=== PATIENT | female | born 1940 | race Caucasian/White ===

== ENCOUNTER 2017-07-22 10:30 | Emergency (ER) | payer MEDICARE, OTHER ==
--- NOTE | 2017-07-22 10:54 | EDM.PDOC ---
ED HPI GENERAL MEDICAL PROBLEM - General Chief Complaint: Chest Pain Stated Complaint: ER Time Seen by Provider: 07/22/17 10:35 Source of Information: Reports: Patient, EMS, EMS Notes Reviewed History Limitations: Reports: No Limitations - History of Present Illness INITIAL COMMENTS - FREE TEXT/NARRATIVE: Pt Comes into the emergency department via EMS today after sustaining sudden chest discomfort on the left side with shortness of breath that lasted approximately 45 minutes before calling EMS. Patient has had 2 other similar episodes of loss week to week and a half. She states that she gets short of breath chest discomfort. She was going to go into the clinic and have this checked out. However this morning when this discomfort started she decided to call 911 and be escorted to the emergency department. The chest discomfort has dissipated however she remains SOB at rest. This is not a new occurrence for the pt. She has been SOB for the past 2 years after only completing light work of 30 mins. The chest discomfort has always followed the SOB after activity. Pt also has a low pulse and a history of a. fib. Onset: Sudden Location: Reports: Chest Quality: Reports: Ache, Pressure Severity: Moderate Associated Symptoms: Reports: Chest Pain, Shortness of Breath. Denies: Cough, cough w sputum, Diaphoresis, Headaches, Loss of Appetite, Malaise, Syncope - Related Data Allergies Allergy/AdvReac Type Severity Reaction Status Date / Time Yquhhnw-[id number]-[id number] Reductase Allergy Other Verified 07/22/17 12:40 Inhibitor chocolate Allergy Other Uncoded 07/22/17 12:40 Home Meds: Home Meds Flaxseed Oil [Flaxseed] 1,000 mg PO DAILY 11/03/13 [History] Furosemide [Lasix] 40 mg PO DAILY 11/03/13 [History] Metoprolol Tartrate 100 mg PO BID 11/03/13 [History] [place]-3/DHA/Epa/Fish Oil [Fish Oil 1,000 mg Softgel] 1 each PO BID 11/03/13 [ History] Warfarin [Coumadin] 5 mg PO ASDIRECTED 11/03/13 [History] Beta-Carotene(A) w/C & E/Min [Prosight] 1 cap PO DAILY 10/24/15 [History] Cholecalciferol (Vitamin D3) [Vitamin D3] 1 tab PO DAILY 10/24/15 [History] Cyanocobalamin (Vitamin B12) [Vitamin B12] 1 ml IM Q30D 10/24/15 [History] Docusate Sodium [Colace] 1 cap PO DAILY 10/24/15 [History] Glucosamine Sulfate 1 tab PO DAILY 10/24/15 [History] L.acidoph,Paracasei, B.lactis [Probiotic] 1 tab PO DAILY 10/24/15 [History] Nortriptyline HCl [Pamelor] 25 mg PO BEDTIME 10/24/15 [History] Omeprazole Magnesium [Prilosec Otc] 20 mg PO DAILY 10/24/15 [History] Pravastatin Sodium [Pravastatin (Pravachol)] 20 mg PO BEDTIME 10/24/15 [History] Vitamin E 400 units PO DAILY 10/24/15 [History] ALPRAZolam [Xanax] 0.25 mg PO TID PRN 03/19/16 [History] Calcium Carbonate/Vitamin D3 [Os-Néstor 500+D] 1 each PO BID 03/19/16 [History] Spironolactone [Aldactone] 12.5 mg PO DAILY 03/19/16 [History] Azithromycin [IJD: Azithromycin] 250 mg PO DAILY #6 tab 07/22/17 [Rx] Citalopram [Citalopram HBr] 20 mg PO DAILY 07/22/17 [History] Diltiazem HCl [Dilt-XR] 120 mg PO DAILY 07/22/17 [History] Linaclotide [Linzess] 145 mcg PO DAILY 07/22/17 [History] Oxybutynin Chloride [Oxybutynin Chloride ER] 15 mg PO DAILY 07/22/17 [History] Prednisone [IJD: Prednisone] 10 mg PO BID #8 tab 07/22/17 [Rx] Past Medical History HEENT History: Reports: Cataract Cardiovascular History: Reports: Afib, Heart Failure, High Cholesterol, Hypertension Other Cardiovascular History: MITRAL REGURGITATION Respiratory History: Reports: Sleep Apnea Gastrointestinal History: Reports: Colon Polyp, Other (See Below) Other Gastrointestinal History: FATTY LIVER, ABDOMINAL PAIN, Genitourinary History: Reports: Other (See Below) Other Genitourinary History: OVER ACTIVE BLADDER Musculoskeletal History: Reports: Other (See Below) Other Musculoskeletal History: TRIGGER FINGER, ROTATOR CUFF INJURY Neurological History: Reports: Other (See Below) Other Neuro History: COGNITIVE IMPAIRMENT Psychiatric History: Reports: Anxiety, Depression Endocrine/Metabolic History: Reports: Diabetes, Type II Hematologic History: Reports: B12 Deficiency Immunologic History: Reports: None Oncologic (Cancer) History: Reports: Bladder Dermatologic History: Reports: None - Past Surgical History GI Surgical History: Reports: Appendectomy, Cholecystectomy, Other (See Below) Female Surgical History: Reports: Breast Reduction, Hysterectomy, Tubal Ligation Neurological Surgical History: Reports: Lumbar Spine, Other (See Below) Musculoskeletal Surgical History: Reports: Other (See Below) Social & Family History - Family History Cardiac: Reports: Hypertension, [place] - Tobacco Use Smoking Status *Q: Never Smoker Second Hand Smoke Exposure: No - Alcohol Use Days Per Week of Alcohol Use: 0 - Recreational Drug Use Recreational Drug Use: No Drug Use in Last 12 Months: No ED ROS GENERAL - Review of Systems Review Of Systems: See Below Constitutional: Reports: No Symptoms HEENT: Reports: No Symptoms Respiratory: Reports: Cough, Sputum Cardiovascular: Reports: Chest Pain, Dyspnea on Exertion, Lightheadedness GI/Abdominal: Reports: No Symptoms : Reports: No Symptoms ED EXAM, GENERAL - Physical Exam Exam: See Below General Appearance: Alert, WD/WN, No Apparent Distress Respiratory/Chest: No Respiratory Distress, Lungs Clear, Normal Breath Sounds, No Accessory Muscle Use, Chest Non-Tender Cardiovascular: Normal Peripheral Pulses, Regular Rate, Rhythm, No Edema GI/Abdominal: Normal Bowel Sounds, Soft, Non-Tender Extremities: Normal Inspection, Normal Range of Motion Neurological: Alert, CN II-XII Intact Psychiatric: Normal Affect, Normal Mood Skin Exam: Warm, Dry, Intact, Normal Color EKG INTERPRETATION Rhythm: NSR Course - Orders/Labs/Meds Orders: Active Orders 24 hr Category Date Time Status EKG 12 Lead [EKG Documentation Completion] [RC] URGENT Care 07/22/17 10:37 Active Chest 1V Frontal [CR] Stat Exams 07/22/17 10:36 Taken Chest PE [Ang Chest] [CT] Stat Exams 07/22/17 12:07 Ordered UA W/MICROSCOPIC [URIN] Stat Lab 07/22/17 11:07 Ordered Labs: Laboratory Tests 07/22/17 07/22/17 07/22/17 Range/Units 10:36 11:08 11:08 WBC 6.1 (4.0-10.0) x10^3/uL RBC 4.05 (4.00-5.50) x10^6/uL Hgb 12.6 (12.0-16.0) g/dL Hct 37.7 (33.0-47.0) % MCV 93.1 H D (78.0-93.0) fL MCH 31.1 (26.0-32.0) pg MCHC 33.4 (32.0-36.0) g/dL RDW Coeff of Dawit 12.9 (10.0-15.0) % Plt Count 170 (130-400) x10^3/uL Neut % (Auto) 47.2 L (50.0-80.0) % Lymph % (Auto) 32.2 (25.0-50.0) % [place] % (Auto) 8.9 (2.0-11.0) % Eos % (Auto) 11.4 H (0.0-4.0) % Baso % (Auto) 0.3 (0.2-1.2) % D-Dimer, Quantitative 0.36 (<=0.58) mg/LFEU Sodium 141 (136-145) mmol/L Potassium 4.9 (3.5-5.1) mmol/L Chloride 105 (98-107) mmol/L Carbon Dioxide 29 (21-32) mmol/L BUN 12 (7-18) mg/dL Creatinine 0.8 (0.55-1.02) mg/dL Est Cr Clr Drug Dosing TNP Estimated GFR (MDRD) > 60 Glucose 124 H (74-106) mg/dL Calcium 8.6 (8.5-10.1) mg/dL Corrected Calcium 9.00 (8.5-10.1) mg/dL Total Bilirubin 1.2 H (0.2-1.0) mg/dL AST 35 (15-37) U/L ALT 44 (14-59) U/L Alkaline Phosphatase 117 H (46-116) U/L Troponin I < 0.017 (<=0.056) ng/mL Total Protein 6.9 (6.4-8.2) g/dL Albumin 3.5 (3.4-5.0) g/dL Globulin 3.4 Albumin/Globulin Ratio 1.03 Meds: Medications Discontinued Medications Generic Name Dose Route Start Last Admin Trade Name Freq PRN Reason Stop Dose Admin Iopamidol 100 ml 03/23/18 12:23 Isovue-300 (61%) IVPUSH 07/22/17 12:24 ONETIME ONE Departure - Departure Time of Disposition: 13:35 Disposition: Home, Self-Care 01 Condition: Good Clinical Impression: SOB (shortness of breath), Bronchitis Instructions: Acute Bronchitis, Adult Forms: ED Department Discharge - My Orders Last 24 Hours: My Active Orders 07/22/17 10:36 Chest 1V Frontal [CR] Stat 07/22/17 10:37 EKG 12 Lead [EKG Documentation Completion] [RC] URGENT 07/22/17 11:07 UA W/MICROSCOPIC [URIN] Stat 07/22/17 12:07 Chest PE [Ang Chest] [CT] Stat - Assessment/Plan Last 24 Hours: My Active Orders 07/22/17 10:36 Chest 1V Frontal [CR] Stat 07/22/17 10:37 EKG 12 Lead [EKG Documentation Completion] [RC] URGENT 07/22/17 11:07 UA W/MICROSCOPIC [URIN] Stat 07/22/17 12:07 Chest PE [Ang Chest] [CT] Stat Plan: 1. Labs completed in ER and results reviewed with the pt 2. Xray completed in ER and results reviewed with pt 3. Pt on Coumadin no other anticoagulant is warranted 4. CTA to rule out PE completed and results discussed with the pt. 5. Bronchial wall thickening revealed on CTA suggested of bronchitis. Pt will be given a short course of steroid to help reduce the inflammation. Azithromycin will also be given since the episodes have occurred over the course of 7-10 days now. 6. Did offer pt to come in observation to monitor and see if we can document a SOB episode. She would not like that option at this time and was aware of the risk of not being observed including but not limited to . Pt understands she is to call 911 again if an episodes results again and not to wait at home for the 45 min like the pervious episodes. 7. Follow up in the clinic early next week is advised
[2017-07-22 11:42] LABS: CHLORIDE,CL 105 mmol/L (98-107); SODIUM,NA 141 mmol/L (136-145)
[2017-07-22] MEDS ORDERED: Iopamidol 612 MG/ML 100 ML Bottle IVPUSH ONE (12:23)
[2017-07-22 13:09] VITALS: BP 100/74
== END 2017-07-22 14:00 | disposition home or self-care (01) ==
LOC: VM.ED 10:30
DX: J40 Bronchitis, not specified as acute or chronic (principal); I11.0 Hypertensive heart disease with heart failure; I50.9 Heart failure, unspecified; E11.9 Type 2 diabetes mellitus without complications; I48.91 Unspecified atrial fibrillation; Z91.018 Allergy to other foods; Z79.899 Other long term (current) drug therapy
CPT/HCPCS: 36415; 71045; 71275; 80053; 84484; 85025; 85379; 85610; 93005; 99285; Q9967; 99284-GF

== ENCOUNTER 2017-09-01 09:24 | Emergency (ER) | payer MEDICARE, OTHER ==
[2017-09-01] MEDS ORDERED: Sodium Chloride 0.9% 10 ML Syringe FLUSH PRN (09:33)
--- NOTE | 2017-09-01 10:11 | EDM.PDOC ---
ED HPI GENERAL MEDICAL PROBLEM - General Chief Complaint: Cardiovascular Problem Stated Complaint: ER Time Seen by Provider: 09/01/17 09:32 Source of Information: Reports: Patient History Limitations: Reports: No Limitations (she is forgetful not fully reliable history) - History of Present Illness INITIAL COMMENTS - FREE TEXT/NARRATIVE: Patient presents today with complaint of palpitations, shortness of breath and dizziness. She complains of this happening on several other occasions. She reports that they just sent her home. She was seen in June for similar type symptoms. She did refuse observation and went home. History of a-fib with multiple attempts at ablation that have been unsuccessful. Additional medical history includes anxiety, depression, hypertriglyceridemia, IBS with constipation, presbyopia, diabetes II, diastolic CHF, OSWALD, GERD. Primary provider is Dr. Brianna Sutherland. She denies any LOC, syncope, blood in urine or stool, no nausea or vomiting. Does have constipation. No abdominal pain. She denies smoking, and drug use, occasional alcohol. Onset: Today Onset Date: 09/01/17 Onset Time: 09:00 Location: Reports: Chest Improves with: Reports: None Worsens with: Reports: None Associated Symptoms: Reports: Shortness of Breath - Related Data Allergies Allergy/AdvReac Type Severity Reaction Status Date / Time Lzcnedw-Hbk-Fyw Reductase Allergy Other Verified 09/01/17 10:09 Inhibitor chocolate Allergy Other Uncoded 07/22/17 12:40 Home Meds: Home Meds Furosemide [Lasix] 20 mg PO DAILY 11/03/13 [History] Metoprolol Tartrate 100 mg PO BID 11/03/13 [History] Warfarin [Coumadin] 2.5 mg PO ASDIRECTED 11/03/13 [History] Beta-Carotene(A) w/C & E/Min [Prosight] 1 cap PO DAILY 10/24/15 [History] Cholecalciferol (Vitamin D3) [Vitamin D3] 1 tab PO DAILY 10/24/15 [History] Cyanocobalamin (Vitamin B12) [Vitamin B12] 1 ml IM Q30D 10/24/15 [History] Docusate Sodium [Colace] 1 cap PO DAILY 10/24/15 [History] Glucosamine Sulfate 1 tab PO DAILY 10/24/15 [History] Nortriptyline HCl [Pamelor] 25 mg PO BEDTIME 10/24/15 [History] Omeprazole Magnesium [Prilosec Otc] 20 mg PO DAILY 10/24/15 [History] Pravastatin Sodium [Pravastatin (Pravachol)] 40 mg PO BEDTIME 10/24/15 [History] ALPRAZolam [Xanax] 0.25 mg PO TID PRN 03/19/16 [History] Calcium Carbonate/Vitamin D3 [Os-Néstor 500+D] 1 each PO BID 03/19/16 [History] Spironolactone [Aldactone] 12.5 mg PO DAILY 03/19/16 [History] Citalopram [Citalopram HBr] 20 mg PO DAILY 07/22/17 [History] Diltiazem HCl [Dilt-XR] 120 mg PO DAILY 07/22/17 [History] Linaclotide [Linzess] 145 mcg PO DAILY 07/22/17 [History] Oxybutynin Chloride [Oxybutynin Chloride ER] 15 mg PO DAILY 07/22/17 [History] Past Medical History HEENT History: Reports: Cataract Cardiovascular History: Reports: Afib, Heart Failure, High Cholesterol, Hypertension Other Cardiovascular History: MITRAL REGURGITATION Respiratory History: Reports: Sleep Apnea Gastrointestinal History: Reports: Colon Polyp, Other (See Below) Other Gastrointestinal History: FATTY LIVER, ABDOMINAL PAIN, Genitourinary History: Reports: Other (See Below) Other Genitourinary History: OVER ACTIVE BLADDER REGIONAL LIAISON History: Reports: Other (See Below) Other OB/BYN History: breast reduction Musculoskeletal History: Reports: Other (See Below) Other Musculoskeletal History: TRIGGER FINGER, ROTATOR CUFF INJURY Neurological History: Reports: Other (See Below) Other Neuro History: COGNITIVE IMPAIRMENT Psychiatric History: Reports: Anxiety, Depression Endocrine/Metabolic History: Reports: Diabetes, Type II Hematologic History: Reports: B12 Deficiency Immunologic History: Reports: None Oncologic (Cancer) History: Reports: Bladder Other Oncologic History: basal cell CA Dermatologic History: Reports: None - Past Surgical History GI Surgical History: Reports: Appendectomy, Cholecystectomy, Other (See Below) Female Surgical History: Reports: Breast Reduction, Hysterectomy, Tubal Ligation Neurological Surgical History: Reports: Lumbar Spine, Other (See Below) Musculoskeletal Surgical History: Reports: Other (See Below) Social & Family History - Family History Cardiac: Reports: Hypertension, [place] - Tobacco Use Smoking Status *Q: Never Smoker Second Hand Smoke Exposure: No - Alcohol Use Days Per Week of Alcohol Use: 0 - Recreational Drug Use Recreational Drug Use: No Drug Use in Last 12 Months: No ED ROS GENERAL - Review of Systems Review Of Systems: See Below Constitutional: Reports: No Symptoms HEENT: Reports: No Symptoms Respiratory: Reports: Shortness of Breath Cardiovascular: Reports: No Symptoms Endocrine: Reports: No Symptoms GI/Abdominal: Reports: No Symptoms : Reports: No Symptoms Musculoskeletal: Reports: No Symptoms Skin: Reports: No Symptoms Neurological: Reports: Dizziness Psychiatric: Reports: Anxiety Hematologic/Lymphatic: Reports: No Symptoms Immunologic: Reports: No Symptoms ED EXAM, GENERAL - Physical Exam Exam: See Below Exam Limited By: No Limitations General Appearance: Alert, WD/WN, Mild Distress Eye Exam: Bilateral Eye: EOMI, Normal Inspection, PERRL Ears: Normal TMs Head: Atraumatic, Normocephalic Neck: Normal Inspection, Supple, Non-Tender, Full Range of Motion Respiratory/Chest: No Respiratory Distress, Lungs Clear, Normal Breath Sounds, No Accessory Muscle Use, Chest Non-Tender Cardiovascular: Bradycardia (heart rate 30-40's), Irregularly Irregular Peripheral Pulses: 2+: Posterior Tibial (L), Posterior Tibial (R), Dorsalis Pedis (L), Dorsalis Pedis (R) GI/Abdominal: Normal Bowel Sounds, Soft, Non-Tender, No Organomegaly, No Distention, No Abnormal Bruit, No Mass Back Exam: Normal Inspection, Full Range of Motion, NT Extremities: Pedal Edema Neurological: Alert, Oriented, CN II-XII Intact, Normal Cognition, Normal Gait, Normal Reflexes, No Motor/Sensory Deficits Psychiatric: Normal Affect, Normal Mood Skin Exam: Warm, Dry, Intact, Normal Color, No Rash Lymphatic: No Adenopathy EKG INTERPRETATION EKG Date: 09/01/17 Time: 09:27 Rhythm: A-Fib Rate (Beats/Min): 41 [place]: Normal P-Wave: Absent QRS: Normal ST-T: Depressed QT: Normal EKG Interpretation Comments: a-fib with slow ventricular response Moderate ST depression Course - Vital Signs Last Recorded V/S: Last Vital Signs Temp 36.2 C 09/01/17 11:51 Pulse 45 L 09/01/17 11:51 Resp 18 09/01/17 11:51 BP 104/72 09/01/17 11:51 Pulse Ox 95 09/01/17 11:51 - Orders/Labs/Meds Orders: Active Orders 24 hr Category Date Time Status EKG Documentation Completion [RC] URGENT Care 09/01/17 09:33 Active Chest 1V Frontal [CR] Stat Exams 09/01/17 09:33 Taken Head wo Cont [CT] Stat Exams 09/01/17 09:33 Taken Saline Lock Insert [OM.PC] Routine Oth 09/01/17 09:33 Ordered Labs: Laboratory Tests 09/01/17 09/01/17 09/01/17 Range/Units 09:48 09:48 09:48 WBC 5.9 (4.0-10.0) x10^3/uL RBC 4.23 (4.00-5.50) x10^6/uL Hgb 13.0 (12.0-16.0) g/dL Hct 39.2 (33.0-47.0) % MCV 92.7 (78.0-93.0) fL MCH 30.7 (26.0-32.0) pg MCHC 33.2 (32.0-36.0) g/dL RDW Coeff of Dawit 12.7 (10.0-15.0) % Plt Count 186 (130-400) x10^3/uL Neut % (Auto) 45.0 L (50.0-80.0) % Lymph % (Auto) 35.5 (25.0-50.0) % [place] % (Auto) 10.0 (2.0-11.0) % Eos % (Auto) 8.8 H (0.0-4.0) % Baso % (Auto) 0.7 (0.2-1.2) % PT 26.4 H (9.6-11.4) SEC INR 2.5 (2.0-3.5) D-Dimer, Quantitative (<=0.58) mg/LFEU Sodium 138 (136-145) mmol/L Potassium 4.4 (3.5-5.1) mmol/L Chloride 105 (98-107) mmol/L Carbon Dioxide 27 (21-32) mmol/L Anion Gap 10.4 (10-20) mmol/L BUN 16 (7-18) mg/dL Creatinine 0.8 (0.55-1.02) mg/dL Est Cr Clr Drug Dosing TNP Estimated GFR (MDRD) > 60 Glucose 116 H (74-106) mg/dL Calcium 8.7 (8.5-10.1) mg/dL Corrected Calcium 9.02 (8.5-10.1) mg/dL Magnesium 1.8 (1.8-2.4) mg/dL Total Bilirubin 1.4 H (0.2-1.0) mg/dL AST 26 (15-37) U/L ALT 18 (14-59) U/L Alkaline Phosphatase 86 (46-116) U/L Troponin I < 0.017 (<=0.056) ng/mL NT-Pro-B Natriuret Pep (<=450) pg/mL Total Protein 7.1 (6.4-8.2) g/dL Albumin 3.6 (3.4-5.0) g/dL Globulin 3.5 Albumin/Globulin Ratio 1.03 TSH, Ultra Sensitive 1.555 (0.358-3.74) uIU/mL 09/01/17 09/01/17 Range/Units 09:48 09:48 WBC (4.0-10.0) x10^3/uL RBC (4.00-5.50) x10^6/uL Hgb (12.0-16.0) g/dL Hct (33.0-47.0) % MCV (78.0-93.0) fL MCH (26.0-32.0) pg MCHC (32.0-36.0) g/dL RDW Coeff of Dawit (10.0-15.0) % Plt Count (130-400) x10^3/uL Neut % (Auto) (50.0-80.0) % Lymph % (Auto) (25.0-50.0) % [place] % (Auto) (2.0-11.0) % Eos % (Auto) (0.0-4.0) % Baso % (Auto) (0.2-1.2) % PT (9.6-11.4) SEC INR (2.0-3.5) D-Dimer, Quantitative 0.28 (<=0.58) mg/LFEU Sodium (136-145) mmol/L Potassium (3.5-5.1) mmol/L Chloride (98-107) mmol/L Carbon Dioxide (21-32) mmol/L Anion Gap (10-20) mmol/L BUN (7-18) mg/dL Creatinine (0.55-1.02) mg/dL Est Cr Clr Drug Dosing Estimated GFR (MDRD) Glucose (74-106) mg/dL Calcium (8.5-10.1) mg/dL Corrected Calcium (8.5-10.1) mg/dL Magnesium (1.8-2.4) mg/dL Total Bilirubin (0.2-1.0) mg/dL AST (15-37) U/L ALT (14-59) U/L Alkaline Phosphatase (46-116) U/L Troponin I (<=0.056) ng/mL NT-Pro-B Natriuret Pep 1237 H (<=450) pg/mL Total Protein (6.4-8.2) g/dL Albumin (3.4-5.0) g/dL Globulin Albumin/Globulin Ratio TSH, Ultra Sensitive (0.358-3.74) uIU/mL Meds: Medications Discontinued Medications Generic Name Dose Route Start Last Admin Trade Name Freq PRN Reason Stop Dose Admin Sodium Chloride 10 ml 09/01/17 09:33 Saline Flush FLUSH ASDIRECTED PRN Keep Vein Open Departure - Departure Time of Disposition: 12:13 Disposition: DC/Tfer to [facility] Reason for Transfer *Q: Other Condition: Good Clinical Impression: Atrial fibrillation Qualifiers: Atrial fibrillation type: persistent Qualified Code(s): I48.1 - Persistent atrial fibrillation Referrals: Brianna Sutherland DO [Primary Care Provider] - Forms: ED Department Discharge, Interfacility Transfer [facility] ED Communication - Discussed Case With (1) Discussed Case With (1): Admitting Provider (Dr. Rivera from hospitalist services was called. Report given. He will assume care of the patient.) - Problem List & Annotations (1) Atrial fibrillation SNOMED Code(s): 77395342 Code(s): I48.91 - UNSPECIFIED ATRIAL FIBRILLATION Status: Acute Priority : Medium Current Visit: Yes Qualifiers: Atrial fibrillation type: persistent Qualified Code(s): I48.1 - Persistent atrial fibrillation - Problem List Review Problem List Initiated/Reviewed/Updated: Yes - My Orders Last 24 Hours: My Active Orders 09/01/17 09:33 EKG Documentation Completion [RC] URGENT Chest 1V Frontal [CR] Stat Head wo Cont [CT] Stat Saline Lock Insert [OM.PC] Routine - Assessment/Plan Last 24 Hours: My Active Orders 09/01/17 09:33 EKG Documentation Completion [RC] URGENT Chest 1V Frontal [CR] Stat Head wo Cont [CT] Stat Saline Lock Insert [OM.PC] Routine
[2017-09-01 10:31] LABS: CHLORIDE,CL 105 mmol/L (98-107); SODIUM,NA 138 mmol/L (136-145)
[2017-09-01 11:52] VITALS: BP 104/72
== END 2017-09-01 12:13 | disposition short-term general hospital (02) ==
LOC: VM.ED 09:24
DX: I48.91 Unspecified atrial fibrillation (principal); I50.9 Heart failure, unspecified; I11.0 Hypertensive heart disease with heart failure; E11.9 Type 2 diabetes mellitus without complications; Z91.018 Allergy to other foods; Z88.8 Allergy status to other drugs, medicaments and biological substances; Z79.899 Other long term (current) drug therapy
CPT/HCPCS: 36415; 70450; 71045; 80053; 83735; 83880; 84443; 84484; 85025; 85379; 85610; 93005; 93010; 99284-GF-25; 99285

== ENCOUNTER 2019-03-28 18:10 | Emergency (ER) | payer MEDICARE, OTHER ==
--- NOTE | 2019-03-28 18:52 | CR ---
[id number] RAD/RAD Chest PA or AP 1V EXAM: FRONTAL CHEST INDICATION: Chest pain. COMPARISON: September 01, 2017. DISCUSSION: Stable cardiomegaly without evidence of congestive heart failure. Mild chronic basilar scarring with no definite acute infiltrates. IMPRESSION: 1. No acute findings. Grayson Marcano MD 03/28/19 [id number] Thank you for allowing us to participate in the care of your patient.
[2019-03-28 18:57] VITALS: BP 137/98; PULSE 100
[2019-03-28 19:02] LABS: CHLORIDE,CL 103 mmol/L (98-107); SODIUM,NA 144 mmol/L (136-145)
--- NOTE | 2019-03-28 19:23 | EDM.PDOC ---
ED HPI GENERAL MEDICAL PROBLEM - General Chief Complaint: Chest Pain Time Seen by Provider: 03/28/19 18:10 Source of Information: Reports: Patient History Limitations: Reports: No Limitations - History of Present Illness INITIAL COMMENTS - FREE TEXT/NARRATIVE: Pt. presents to ER with complaints of respirophasic L sided chest pain beneath her L breast. She states that the discomfort is worse with very deep breathing. She states that she has had similar symptoms in the past. She states that today , she had acute onset of the discomfort while watching television today. She immediately came to ER. Denies any shortness of breath. No cough or chest congestion. She states that the pain is very localized and does not radiate. Denies any fever of chills. No diaphoresis. Onset: Today Location: Reports: Chest Quality: Reports: Sharp Severity: Moderate Associated Symptoms: Reports: Chest Pain Left Lower Chest Pain Score (Numeric/FACES): 5 - Related Data Allergies Allergy/AdvReac Type Severity Reaction Status Date / Time [id number] Reductase Allergy Other Verified 03/28/19 18:51 Inhibitor chocolate Allergy Other Uncoded 03/28/19 18:51 Home Meds: Home Meds Furosemide [Lasix] 20 mg PO DAILY 11/03/13 [History] Metoprolol Tartrate 100 mg PO BID 11/03/13 [History] Warfarin [Coumadin] 2.5 mg PO ASDIRECTED 11/03/13 [History] Beta-Carotene(A) w/C & E/Min [Prosight] 1 cap PO DAILY 10/24/15 [History] Cholecalciferol (Vitamin D3) [Vitamin D3] 1 tab PO DAILY 10/24/15 [History] Cyanocobalamin (Vitamin B12) [Vitamin B12] 1 ml IM Q30D 10/24/15 [History] Docusate Sodium [Colace] 1 cap PO DAILY 10/24/15 [History] Glucosamine Sulfate 1 tab PO DAILY 10/24/15 [History] Nortriptyline HCl [Pamelor] 25 mg PO BEDTIME 10/24/15 [History] Omeprazole Magnesium [Prilosec Otc] 20 mg PO DAILY 10/24/15 [History] Pravastatin Sodium [Pravastatin (Pravachol)] 40 mg PO BEDTIME 10/24/15 [History] ALPRAZolam [Xanax] 0.25 mg PO TID PRN 03/19/16 [History] Calcium Carbonate/Vitamin D3 [Os-Néstor 500+D] 1 each PO BID 03/19/16 [History] Spironolactone [Aldactone] 12.5 mg PO DAILY 03/19/16 [History] Citalopram [Citalopram HBr] 20 mg PO DAILY 07/22/17 [History] Diltiazem HCl [Dilt-XR] 120 mg PO DAILY 07/22/17 [History] Linaclotide [Linzess] 145 mcg PO DAILY 07/22/17 [History] Oxybutynin Chloride [Oxybutynin Chloride ER] 15 mg PO DAILY 07/22/17 [History] Past Medical History HEENT History: Reports: Cataract Cardiovascular History: Reports: Afib, Heart Failure, High Cholesterol, Hypertension Other Cardiovascular History: MITRAL REGURGITATION Respiratory History: Reports: Sleep Apnea Gastrointestinal History: Reports: Colon Polyp, Other (See Below) Other Gastrointestinal History: FATTY LIVER, ABDOMINAL PAIN, Genitourinary History: Reports: Other (See Below) Other Genitourinary History: OVER ACTIVE BLADDER 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 (See Below) Other INVOICE CODER History: breast reduction Musculoskeletal History: Reports: Other (See Below) Other Musculoskeletal History: TRIGGER FINGER, ROTATOR CUFF INJURY Neurological History: Reports: Other (See Below) Other Neuro History: COGNITIVE IMPAIRMENT Psychiatric History: Reports: Anxiety, Depression Endocrine/Metabolic History: Reports: Diabetes, Type II Hematologic History: Reports: B12 Deficiency Immunologic History: Reports: None Oncologic (Cancer) History: Reports: Bladder Other Oncologic History: basal cell CA Dermatologic History: Reports: None - Past Surgical History Head Surgeries/Procedures: Reports: None GI Surgical History: Reports: Appendectomy, Cholecystectomy Female Surgical History: Reports: Breast Reduction, Hysterectomy, Tubal Ligation Neurological Surgical History: Reports: Lumbar Spine, Other (See Below) Social & Family History - Family History Cardiac: Reports: Hypertension, [place] - Tobacco Use Smoking Status *Q: Never Smoker - Recreational Drug Use Recreational Drug Use: No ED ROS GENERAL - Review of Systems Review Of Systems: See Below Constitutional: Reports: No Symptoms. Denies: Fever, Chills, Malaise, Weakness , Fatigue, Night Sweats, Diaphoresis, Weight Loss HEENT: Reports: No Symptoms Respiratory: Reports: Pleuritic Chest Pain Cardiovascular: Reports: No Symptoms Endocrine: Reports: No Symptoms GI/Abdominal: Reports: No Symptoms : Reports: No Symptoms Musculoskeletal: Reports: No Symptoms Skin: Reports: No Symptoms Neurological: Reports: No Symptoms Psychiatric: Reports: No Symptoms Hematologic/Lymphatic: Reports: No Symptoms Immunologic: Reports: No Symptoms ED EXAM, GENERAL - Physical Exam Exam: See Below Exam Limited By: No Limitations General Appearance: Alert, WD/WN, No Apparent Distress Nose: Normal Inspection, Normal Mucosa Throat/Mouth: Normal Inspection, Normal Lips, Normal Teeth, Normal Gums, Normal Oropharynx, Normal Voice, No Airway Compromise Head: Atraumatic, Normocephalic Neck: Normal Inspection, Supple, Non-Tender, Full Range of Motion Respiratory/Chest: No Respiratory Distress, Lungs Clear, Normal Breath Sounds, No Accessory Muscle Use, Other (respirophasic chest pain, worse with palpation. Point tenderness between approx. 5th and 6h intercostal space on anterior chest. ) Cardiovascular: Normal Peripheral Pulses, No Gallop, No JVD, No Murmur, No Rub, Irregularly Irregular Peripheral Pulses: 4+: Radial (L) GI/Abdominal: Normal Bowel Sounds, Soft, Non-Tender, No Organomegaly, No Distention, No Abnormal Bruit, No Mass, Pelvis Stable (Female) Exam: Deferred Rectal (Female) Exam: Deferred Back Exam: Normal Inspection, Full Range of Motion Neurological: Alert, Oriented, CN II-XII Intact, Normal Cognition, Normal Gait, Normal Reflexes, No Motor/Sensory Deficits Psychiatric: Normal Affect, Normal Mood Skin Exam: Warm, Dry, Intact, Normal Color, No Rash Lymphatic: No Adenopathy EKG INTERPRETATION Rhythm: A-Fib Comparison: No Change Course - Vital Signs Last Recorded V/S: Last Vital Signs Temp 36.9 C 03/28/19 18:10 Pulse 100 03/28/19 18:10 Resp 16 03/28/19 18:10 BP 137/98 H 03/28/19 18:10 Pulse Ox 97 03/28/19 18:10 - Orders/Labs/Meds Orders: Active Orders 24 hr Category Date Time Status EKG Documentation Completion [RC] STAT Care 03/28/19 18:17 Active Labs: Laboratory Tests 03/28/19 03/28/19 03/28/19 Range/Units 18:23 18:23 18:23 WBC 5.7 (4.0-10.0) x10^3/uL RBC 4.75 (4.00-5.50) x10^6/uL Hgb 14.8 D (12.0-16.0) g/dL Hct 43.6 (33.0-47.0) % MCV 91.8 (78.0-93.0) fL MCH 31.2 (26.0-32.0) pg MCHC 33.9 (32.0-36.0) g/dL RDW Coeff of Dawit 12.4 (10.0-15.0) % Plt Count 166 (130-400) x10^3/uL Neut % (Auto) 41.7 L (50.0-80.0) % Lymph % (Auto) 40.6 (25.0-50.0) % Izard % (Auto) 9.0 (2.0-11.0) % Eos % (Auto) 8.3 H (0.0-4.0) % Baso % (Auto) 0.4 (0.2-1.2) % PT 20.4 H (10.0-12.8) SEC INR 1.8 L (2.0-3.5) D-Dimer, Quantitative 0.19 (<=0.58) mg/LFEU Sodium (136-145) mmol/L Potassium (3.5-5.1) mmol/L Chloride (98-107) mmol/L Carbon Dioxide (21-32) mmol/L Anion Gap (10-20) mmol/L BUN (7-18) mg/dL Creatinine (0.55-1.02) mg/dL Est Cr Clr Drug Dosing mL/min Estimated GFR (MDRD) Glucose (74-106) mg/dL Calcium (8.5-10.1) mg/dL Corrected Calcium (8.5-10.1) mg/dL Total Bilirubin (0.2-1.0) mg/dL AST (15-37) U/L ALT (14-59) U/L Alkaline Phosphatase (46-116) U/L Troponin I (<=0.056) ng/mL C-Reactive Protein (<=0.9) mg/dL Total Protein (6.4-8.2) g/dL Albumin (3.4-5.0) g/dL Globulin Albumin/Globulin Ratio 03/28/ Range/Units 18:23 WBC (4.0-10.0) x10^3/uL RBC (4.00-5.50) x10^6/uL Hgb (12.0-16.0) g/dL Hct (33.0-47.0) % MCV (78.0-93.0) fL MCH (26.0-32.0) pg MCHC (32.0-36.0) g/dL RDW Coeff of Dawit (10.0-15.0) % Plt Count (130-400) x10^3/uL Neut % (Auto) (50.0-80.0) % Lymph % (Auto) (25.0-50.0) % Izard % (Auto) (2.0-11.0) % Eos % (Auto) (0.0-4.0) % Baso % (Auto) (0.2-1.2) % PT (10.0-12.8) SEC INR (2.0-3.5) D-Dimer, Quantitative (<=0.58) mg/LFEU Sodium 144 (136-145) mmol/L Potassium 4.0 (3.5-5.1) mmol/L Chloride 103 (98-107) mmol/L Carbon Dioxide 31 (21-32) mmol/L Anion Gap 14.0 (10-20) mmol/L BUN 19 H (7-18) mg/dL Creatinine 0.8 (0.55-1.02) mg/dL Est Cr Clr Drug Dosing 58.61 mL/min Estimated GFR (MDRD) > 60 Glucose 126 H (74-106) mg/dL Calcium 8.9 (8.5-10.1) mg/dL Corrected Calcium 9.22 (8.5-10.1) mg/dL Total Bilirubin 1.4 H (0.2-1.0) mg/dL AST 21 (15-37) U/L ALT 21 (14-59) U/L Alkaline Phosphatase 117 H (46-116) U/L Troponin I < 0.017 (<=0.056) ng/mL C-Reactive Protein < 0.2 (<=0.9) mg/dL Total Protein 7.4 (6.4-8.2) g/dL Albumin 3.6 (3.4-5.0) g/dL Globulin 3.8 Albumin/Globulin Ratio 0.95 - Radiology Interpretation Free Text/Narrative:: chest x-ray negative for acute pathology. - Re-Assessments/Exams Free Text/Narrative Re-Assessment/Exam: 03/28/19 19:56 Pain resolved spontaneously shortly after arrival to ER. There was very localized chest pain, worse with increased palpation consistent with costochondritis or muscle spasm. Departure - Departure Time of Disposition: 19:15 Disposition: Home, Self-Care 01 Condition: Good Clinical Impression: Chest pain, atypical - Discharge Information Instructions: Nonspecific Chest Pain, [id number] Referrals: PCP,Unobtain [Primary Care Provider] - Forms: ED Department Discharge Additional Instructions: All of your laboratory tests were within normal limits. The cause of the pain is likely musculoskeletal, due to increased pain with palpation of the area. Use heat as needed for pain. Follow-up in clinic in 7-10 days, sooner if not gradually improving or getting worse. - My Orders Last 24 Hours: My Active Orders 03/28/19 18:17 EKG Documentation Completion [RC] STAT - Assessment/Plan Last 24 Hours: My Active Orders 03/28/19 18:17 EKG Documentation Completion [RC] STAT Plan: All of your laboratory tests were within normal limits. The cause of the pain is likely musculoskeletal, due to increased pain with palpation of the area. Use heat as needed for pain. Follow-up in clinic in 7-10 days, sooner if not gradually improving or getting worse.
== END 2019-03-28 19:25 | disposition home or self-care (01) ==
LOC: VM.ED 18:10
DX: R07.89 Other chest pain (principal); I11.0 Hypertensive heart disease with heart failure; I50.9 Heart failure, unspecified; E78.00 Pure hypercholesterolemia, unspecified; E11.9 Type 2 diabetes mellitus without complications; F32.9 Major depressive disorder, single episode, unspecified; F41.9 Anxiety disorder, unspecified; Z79.01 Long term (current) use of anticoagulants; Z79.899 Other long term (current) drug therapy; Z88.8 Allergy status to other drugs, medicaments and biological substances; Z91.018 Allergy to other foods
CPT/HCPCS: 71045; 80053; 84484; 85025; 85379; 85610; 86140; 93005; 99285-25

== ENCOUNTER 2019-09-10 16:11 | Emergency (ER) | payer MEDICARE, OTHER ==
[2019-09-10 16:20] VITALS: BP 116/66; PULSE 111
[2019-09-10] MEDS: Oxymetazoline 0.05% Nasal Spray 30 ML Bottle NAS ONE (16:26)
--- NOTE | 2019-09-10 17:15 | EDM.PDOC ---
ED HPI GENERAL MEDICAL PROBLEM - General Chief Complaint: ENT Problem Time Seen by Provider: 09/10/19 16:11 Source of Information: Reports: Patient, EMS History Limitations: Reports: No Limitations - History of Present Illness INITIAL COMMENTS - FREE TEXT/NARRATIVE: Pt. was seen in clinic earlier today with epistaxis from both nares, R greater than left. Pt. states that the inadvertently took coumadin (this was discontinued some time ago). In the clinic, the patient was found to have an INR of 10.3. Her R nare was packed with ribbon gauze and the patient was discharged. She states that the nose has continued to bleed, so EMS was summoned. Onset: Today Location: Reports: Face - Related Data Allergies Allergy/AdvReac Type Severity Reaction Status Date / Time Cjmmnjt-[id number] Reductase Allergy Other Verified 09/10/19 16:22 Inhibitor chocolate Allergy Other Uncoded 03/28/19 18:51 Home Meds: Home Meds Furosemide [Lasix] 20 mg PO DAILY 11/03/13 [History] Metoprolol Tartrate 100 mg PO BID 11/03/13 [History] Warfarin [Coumadin] 2.5 mg PO ASDIRECTED 11/03/13 [History] Beta-Carotene(A) w/C & E/Min [Prosight] 1 cap PO DAILY 10/24/15 [History] Cholecalciferol (Vitamin D3) [Vitamin D3] 1 tab PO DAILY 10/24/15 [History] Cyanocobalamin (Vitamin B12) [Vitamin B12] 1 ml IM Q30D 10/24/15 [History] Docusate Sodium [Colace] 1 cap PO DAILY 10/24/15 [History] Glucosamine Sulfate 1 tab PO DAILY 10/24/15 [History] Nortriptyline HCl [Pamelor] 25 mg PO BEDTIME 10/24/15 [History] Omeprazole Magnesium [Prilosec Otc] 20 mg PO DAILY 10/24/15 [History] Pravastatin Sodium [Pravastatin (Pravachol)] 40 mg PO BEDTIME 10/24/15 [History] ALPRAZolam [Xanax] 0.25 mg PO TID PRN 03/19/16 [History] Calcium Carbonate/Vitamin D3 [Os-Néstor 500+D] 1 each PO BID 03/19/16 [History] Spironolactone [Aldactone] 12.5 mg PO DAILY 03/19/16 [History] Citalopram [Citalopram HBr] 20 mg PO DAILY 07/22/17 [History] Linaclotide [Linzess] 145 mcg PO DAILY 07/22/17 [History] Oxybutynin Chloride [Oxybutynin Chloride ER] 15 mg PO DAILY 07/22/17 [History] dilTIAZem HCL [Dilt-XR] 120 mg PO DAILY 07/22/17 [History] Past Medical History HEENT History: Reports: Cataract Cardiovascular History: Reports: Afib, Heart Failure, High Cholesterol, Hypertension Other Cardiovascular History: MITRAL REGURGITATION Respiratory History: Reports: Sleep Apnea Gastrointestinal History: Reports: Colon Polyp, Other (See Below) Other Gastrointestinal History: FATTY LIVER, ABDOMINAL PAIN, Genitourinary History: Reports: Other (See Below) Other Genitourinary History: OVER ACTIVE BLADDER 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 (See Below) Other ORGANIC EXTRACTIONS TECHNICIAN History: breast reduction Musculoskeletal History: Reports: Other (See Below) Other Musculoskeletal History: TRIGGER FINGER, ROTATOR CUFF INJURY Neurological History: Reports: Other (See Below) Other Neuro History: COGNITIVE IMPAIRMENT Psychiatric History: Reports: Anxiety, Depression Endocrine/Metabolic History: Reports: Diabetes, Type II Hematologic History: Reports: B12 Deficiency Immunologic History: Reports: None Oncologic (Cancer) History: Reports: Bladder Other Oncologic History: basal cell CA Dermatologic History: Reports: None - Past Surgical History Head Surgeries/Procedures: Reports: None GI Surgical History: Reports: Appendectomy, Cholecystectomy Female Surgical History: Reports: Breast Reduction, Hysterectomy, Tubal Ligation Neurological Surgical History: Reports: Lumbar Spine, Other (See Below) Social & Family History - Family History Cardiac: Reports: Hypertension, [place] ED ROS GENERAL - Review of Systems Review Of Systems: See Below Constitutional: Reports: No Symptoms HEENT: Reports: Nosebleed Respiratory: Reports: No Symptoms Cardiovascular: Reports: No Symptoms Endocrine: Reports: No Symptoms GI/Abdominal: Reports: No Symptoms : Reports: No Symptoms Musculoskeletal: Reports: No Symptoms Skin: Reports: No Symptoms Neurological: Reports: No Symptoms Psychiatric: Reports: No Symptoms Hematologic/Lymphatic: Reports: No Symptoms Immunologic: Reports: No Symptoms ED EXAM, GENERAL - Physical Exam Exam: See Below Exam Limited By: No Limitations General Appearance: Alert, WD/WN, No Apparent Distress Nose: Other (brisk bleeding from both nares, R greater than L.) Course - Vital Signs Last Recorded V/S: Last Vital Signs Temp 37.3 C 09/10/19 16:11 Pulse 111 H 09/10/19 16:11 Resp 18 09/10/19 16:11 BP 116/66 09/10/19 16:11 Pulse Ox 95 09/10/19 16:11 - Orders/Labs/Meds Meds: Medications Discontinued Medications Generic Name Dose Route Start Last Admin Trade Name Juliann PRN Reason Stop Dose Admin Oxymetazoline HCl 1 ml 09/10/19 16:16 09/10/19 16:26 Nasal Decongestant Meherrin NADINE 09/10/19 16:17 1 ml ONETIME ONE Administration - Re-Assessments/Exams Free Text/Narrative Re-Assessment/Exam: R nare packing removed. The nose is bleeding briskly. Afrin nasal spray was instilled in both nares. R nare was packed with a 7.5 cm anterior/posterior nasal packing. Pt. continued to experience bleeding around the packing, and was bleeding briskly into her hypopharynx. Air was increased in the balloon, and bleeding decreased but was still brisk. Attempted to placed a second packing in the L nare as there was bleeding from this nare as well. Unable to pass anything through this nare. Departure - Departure Time of Disposition: 17:16 Disposition: DC/Tfer to [facility] 02 Clinical Impression: Epistaxis - Discharge Information Referrals: PCP,None [Primary Care Provider] - Forms: ED Department Discharge, Interfacility Transfer [facility] Sepsis Event Note - Evaluation Sepsis Screening Result: No Definite Risk - Focused Exam Vital Signs: Vital Signs Temp Pulse Resp BP Pulse Ox 09/10/19 16:11 37.3 C 111 H 18 116/66 95 Date Exam was Performed: 09/10/19 Time Exam was Performed: 17:10 - Problem List Review Problem List Initiated/Reviewed/Updated: Yes - Assessment/Plan Plan: Pt. will be transferred to [facility]. Called and discussed findings with Dr. Porras who accepts the patient in transfer. She will be transported via [facility] ground ambulance to [place]. All questions were answered.
== END 2019-09-10 17:15 | disposition short-term general hospital (02) ==
LOC: VM.ED 16:11
DX: R04.0 Epistaxis (principal); I11.0 Hypertensive heart disease with heart failure; I50.9 Heart failure, unspecified; I48.91 Unspecified atrial fibrillation; E78.00 Pure hypercholesterolemia, unspecified; E11.9 Type 2 diabetes mellitus without complications; F32.9 Major depressive disorder, single episode, unspecified; F41.9 Anxiety disorder, unspecified; Z91.018 Allergy to other foods; Z88.8 Allergy status to other drugs, medicaments and biological substances; Z79.899 Other long term (current) drug therapy
CPT/HCPCS: 30901; 30905; 99283-GF; 99285-25; A9270-GY

== ENCOUNTER 2021-10-21 12:13 | Emergency (ER) | payer MEDICARE, OTHER ==
[2021-10-21 13:00] VITALS: BP 108/68; PULSE 103
[2021-10-21 13:00] LABS: ANION GAP 11.8 mmol/L (5-15); CHLORIDE,CL 104 mmol/L (98-107); ESTIMATED GFR 73 mL/min (>=60); SODIUM,NA 141 mmol/L (136-145)
== END 2021-10-21 13:36 | disposition home or self-care (01) ==
LOC: VM.ED 12:13
DX: N39.0 Urinary tract infection, site not specified (principal); R31.9 Hematuria, unspecified; R45.86 Emotional lability; I48.91 Unspecified atrial fibrillation; I11.0 Hypertensive heart disease with heart failure; I50.9 Heart failure, unspecified; E78.00 Pure hypercholesterolemia, unspecified; E11.9 Type 2 diabetes mellitus without complications; Z91.018 Allergy to other foods; Z88.8 Allergy status to other drugs, medicaments and biological substances; Z79.899 Other long term (current) drug therapy; Z79.01 Long term (current) use of anticoagulants
CPT/HCPCS: 36415; 80053; 81001; 85025; 87086; 99284; 99284-25